=== PATIENT | female | born 2000 | race Caucasian/White ===

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

== ENCOUNTER → 2022-09-06 | Outpatient (REF) | payer OTHER, MEDICAID ==
[2022-09-06 21:22] LABS: APPEARANCE, URINE MANUAL HAZY (CLEAR); COLOR, URINE MANUAL YELLOW (YELLOW)
[2022-09-06 21:24] LABS: BILIRUBIN, URINE MANUAL NEGATIVE (NEGATIVE); BLOOD URINE MANUAL NEGATIVE (NEGATIVE); GLUCOSE, URINE (UA) MANUAL NEGATIVE (NEGATIVE); KETONE, URINE MANUAL NEGATIVE (NEGATIVE); LEUKOCYTE ESTERASE, URINE MAN TRACE (NEGATIVE); NITRITE, URINE MANUAL NEGATIVE (NEGATIVE); PH,URINE MAN 5.5 UNITS (5.0 - 7.0); PROTEIN, URINE MANUAL NEGATIVE (NEGATIVE); UROBILINOGEN, URINE MANUAL 1 MG mg/dl (NORMAL)
[2022-09-06 22:37] LABS: BACTERIA, URINE SMALL AMOUNT; HYALINE CAST, URINE NONE SEEN /lpf (0-1); MUCUS, URINE LARGE AMOUNT (NEGATIVE); RBC, URINE 0-1 /hpf (0-3); SQUAMOUS EPITHELIAL CELL URINE LARGE AMOUNT /hpf (SMALL AMT)
== END ==
LOC: M LAB REF 21:15
PROVIDERS: ATTEND Physician Assistant Medical
DX: N39.0 Urinary tract infection, site not specified (principal)

== ENCOUNTER → 2023-07-21 | Outpatient (REF) | payer OTHER, MEDICAID | LOC: M SFHCCLAY 13:55 | PROVIDERS: ATTEND Nurse Practitioner Family | DX: Z00.00 Encounter for general adult medical examination without abnormal findings (principal); E66.01 Morbid (severe) obesity due to excess calories; Z53.9 Procedure and treatment not carried out, unspecified reason ==

== ENCOUNTER → 2023-09-21 | Outpatient (REF) | payer OTHER, MEDICAID | LOC: M SMT 17:15 | PROVIDERS: ATTEND Urology | DX: N39.8 Other specified disorders of urinary system (principal) ==

== ENCOUNTER → 2023-10-28 | Outpatient (REF) | payer OTHER, MEDICAID ==
[2023-10-28 14:13] LABS: APPEARANCE, URINE CLEAR (CLEAR); BACTERIA, URINE AUTO NEGATIVE (NEGATIVE); BILIRUBIN, URINE AUTO NEGATIVE (NEGATIVE); BLOOD, URINE BLOOD 1+ (NEGATIVE); COLOR, URINE YELLOW (YELLOW); GLUCOSE, URINE (UA) AUTO NEGATIVE (NEGATIVE); KETONE, URINE AUTO NEGATIVE (NEGATIVE); LEUKOCYTE ESTERASE, URINE AUTO NEGATIVE (NEGATIVE); MUCUS, URINE SMALL (NEGATIVE); NITRITE, URINE AUTO NEGATIVE (NEGATIVE); PROTEIN, URINE AUTO NEGATIVE (NEGATIVE); RBC, URINE AUTO 31 /HPF (0-3); SPECIFIC GRAVITY URINE AUTO 1.015 (1.002-1.035); SQUAMOUS EPITHELIAL CELL UR AU 1 /HPF (0-6); UROBILINOGEN, URINE AUTO 0.2 mg/dL (0.0-2.0); WBC, URINE AUTO 1 /HPF (0-3)
== END ==
LOC: M SMT 12:44
PROVIDERS: ATTEND Urology
DX: N39.8 Other specified disorders of urinary system (principal)

== ENCOUNTER 2023-11-01 09:49 | Emergency (ER) | payer OTHER, MEDICAID ==
[~2023-11-01] VITALS: Ht 162.6 cm; Wt 203.0 kg
[2023-11-01 09:50] VITALS: BP 135/80; TEMP 99.3; O2SAT 95
[2023-11-01] MEDS ORDERED: BOOSTRIX VACCINE (TETANUS/DIPHTH/ACEL. PERTUSSIS) 0.5ML SYR IM.IMMUN ONE (12:35)
== END 2023-11-01 12:46 | disposition home or self-care (01) ==
LOC: M ED 09:49
DX: S50.11XA Contusion of right forearm, initial encounter (principal); W50.3XXA Accidental bite by another person, initial encounter; Y99.0 Civilian activity done for income or pay; Y92.9 Unspecified place or not applicable; Z79.3 Long term (current) use of hormonal contraceptives

== ENCOUNTER → 2024-01-20 | Outpatient (CLI) | payer OTHER, MEDICAID | LOC: M CLY 14:33 | PROVIDERS: ATTEND Nurse Practitioner Family | DX: R07.9 Chest pain, unspecified (principal) ==

== ENCOUNTER → 2024-01-20 | Outpatient (REF) | payer OTHER, MEDICAID ==
[2024-01-20 17:19] LABS: BASO # 0.1 10^3/uL (0.0-0.2); BASO % 0.8 % (0.0-1.0); EOS # 0.7 10^3/uL (0.0-0.5); EOS % 7.7 % (0.0-3.0); HEMATOCRIT 44.8 % (36.0-47.0); HEMOGLOBIN 14.5 g/dl (12.0-15.5); LYMPH # 2.2 10^3/uL (1.5-5.0); MEAN CORPUSCULAR HGB CONC 32.4 g/dl (32.0-36.5); MEAN CORPUSCULAR VOLUME 86.7 fl (80.0-96.0); MONO # 0.9 10^3/uL (0.0-0.8); MONO % 9.4 % (2.0-8.0); NEUTROPHILS # 5.6 10^3/uL (1.5-8.5); NEUTROPHILS % 58.7 % (36.0-66.0); PLATELET COUNT, AUTOMATED 334 10^3/uL (150-450); RED BLOOD COUNT 5.17 10^6/uL (4.00-5.40); WHITE BLOOD COUNT 9.5 10^3/uL (4.0-10.0)
[2024-01-20 18:08] LABS: ALBUMIN 3.4 G/DL (3.2-5.2); ALKALINE PHOSPHATASE 62 U/L (46-116); ALT/SGPT 22 U/L (7.0-40); AST/SGOT 12 U/L (<34); BILIRUBIN,TOTAL 0.4 MG/DL (0.3-1.2); BLOOD UREA NITROGEN 13 MG/DL (9-23); CALCIUM LEVEL 8.5 MG/DL (8.5-10.1); CARBON DIOXIDE LEVEL 25 MMOL/L (20-31); CHLORIDE LEVEL 108 MMOL/L (98-107); CHOLESTEROL LEVEL 143 MG/DL (<200); CHOLESTEROL RISK RATIO 2.86 (<5); CREATININE FOR GFR 0.61 MG/DL (0.55-1.30); FOLLICLE STIMULATING HORMONE 6.1 mIU/ML; GLOMERULAR FILTRATION RATE > 60.0 (>60); GLUCOSE, FASTING 88 MG/DL (60-100); LDL CHOLESTEROL 73.4 MG/DL (<100); LUTEINIZING HORMONE 7.6 mIU/ML; SODIUM LEVEL 139 MMOL/L (136-145); THYROID STIMULATING HORMONE 1.496 uIU/ML (0.55-4.78); TOTAL PROTEIN 6.9 G/DL (5.7-8.2); TRIGLYCERIDES LEVEL 98 MG/DL (<150)
[2024-01-20 18:09] LABS: TESTOSTERONE 57 NG/DL (14-76)
[2024-01-20 18:34] LABS: HEMOGLOBIN A1c 4.9 % (4.0-6.0)
[2024-01-22 08:08] LABS: FREE ANDROGEN INDEX 7.9 (0.4-8.4); SEX HORM BINDING GLOB 29.6 nmol/L (24.6-122.0); TESTOSTERONE 67 ng/dL (13-71)
== END ==
LOC: M SFHCCLAY 13:55
PROVIDERS: ATTEND Nurse Practitioner Family
DX: R07.9 Chest pain, unspecified (principal); E66.01 Morbid (severe) obesity due to excess calories; L68.0 Hirsutism; N91.2 Amenorrhea, unspecified

== ENCOUNTER → 2024-02-23 | Outpatient (REF) | payer OTHER, MEDICAID | LOC: M SFHCCLAY 11:50 | PROVIDERS: ATTEND Nurse Practitioner Family | DX: R07.9 Chest pain, unspecified (principal) ==

== ENCOUNTER → 2024-03-14 | Outpatient (CLI) | payer OTHER, MEDICAID | LOC: M CARPUL 15:23 | PROVIDERS: ATTEND Nurse Practitioner Family | DX: R07.9 Chest pain, unspecified (principal); R94.31 Abnormal electrocardiogram [ECG] [EKG] ==

== ENCOUNTER → 2024-04-13 | Outpatient (CLI) | payer OTHER, MEDICAID | LOC: M WHC 15:34 | PROVIDERS: ATTEND Nurse Practitioner Family | DX: N91.2 Amenorrhea, unspecified (principal) ==

== ENCOUNTER → 2024-09-17 | Outpatient (CLI) | payer OTHER ==
[2024-09-17 19:31] LABS: HEPATITIS B SURFACE ANTIGEN NEGATIVE (NEGATIVE)
[2024-09-17 19:33] LABS: HEMOGLOBIN A1c 4.8 % (4.0-6.0)
[2024-09-17 19:43] LABS: HIV 1&2 SCREEN NEGATIVE (NEGATIVE)
[2024-09-17 19:51] LABS: HEPATITIS B CORE ANTIBODY IGM NEGATIVE (NEGATIVE); HEPATITIS C VIRUS ABY INDEX 0.02 INDEX (<0.8)
[2024-09-17 20:04] LABS: Trichomonas vaginalis (AMP) NOT DETECTED (NEGATIVE)
[2024-09-17 20:27] LABS: GC DNA AMPLIFICATION NEGATIVE (NEGATIVE)
== END ==
LOC: M PLALAB 15:05
PROVIDERS: ATTEND Nurse Practitioner Family
DX: E28.2 Polycystic ovarian syndrome (principal); Z11.3 Encounter for screening for infections with a predominantly sexual mode of transmission

== ENCOUNTER → 2024-12-04 | Outpatient (REF) | payer OTHER | LOC: M SFHCWAGY 17:26 | PROVIDERS: ATTEND Nurse Practitioner Family | DX: Z12.4 Encounter for screening for malignant neoplasm of cervix (principal) ==

== ENCOUNTER 2025-02-20 08:07 | Emergency (ER) | payer OTHER ==
[~2025-02-20] VITALS: Ht 162.6 cm; Wt 195.9 kg
[2025-02-20] MEDS ORDERED: LORA-1041 (08:23)
[2025-02-20] MEDS: IBUPROFEN 600MG TAB PO ONE (09:26)
[2025-02-20] MEDS ORDERED: IBUP-1022 PO (10:11)
[2025-02-20] MEDS ORDERED: ACET-907 PO (10:11)
[2025-02-20 10:33] VITALS: BP 115/73; TEMP 97.2; O2SAT 98
== END 2025-02-20 10:35 | disposition home or self-care (01) ==
LOC: M ED 08:07
DX: S66.412A Strain of intrinsic muscle, fascia and tendon of left thumb at wrist and hand level, initial encounter (principal); X58.XXXA Exposure to other specified factors, initial encounter; Y92.9 Unspecified place or not applicable; Y93.9 Activity, unspecified; Y99.0 Civilian activity done for income or pay

== ENCOUNTER → 2025-10-18 | Outpatient (CLI) | payer OTHER ==
[~2025-10-18] MED LIST changes: +ACET-907 PO; +IBUP600T42 PO; +LORA-1041
[2025-10-18 18:51] LABS: ALT/SGPT 28 U/L (7.0-40); AST/SGOT 20 U/L (<34); CALCIUM LEVEL 8.8 MG/DL (8.5-10.1); CARBON DIOXIDE LEVEL 24 MMOL/L (20-31); CHLORIDE LEVEL 107 MMOL/L (98-107); CHOLESTEROL LEVEL 136 MG/DL (<200); CHOLESTEROL RISK RATIO 2.47 (<5); CREATININE FOR GFR 0.59 MG/DL (0.55-1.30); GLOMERULAR FILTRATION RATE > 90.0 (>60); LDL CHOLESTEROL 66.7 MG/DL (<100); NON-HDL-C 81.1 MG/DL; POTASSIUM SERUM 4.0 MMOL/L (3.5-5.1); SODIUM LEVEL 142 MMOL/L (136-145); TRIGLYCERIDES LEVEL 72 MG/DL (<150)
[2025-10-18 18:52] LABS: FREE T4 1.37 NG/DL (0.89-1.76)
[2025-10-18 18:58] LABS: ESTIMATED AVERAGE GLUCOSE 94.0 MG/DL (60-110)
[2025-10-18 19:05] LABS: BASO # 0.1 10^3/uL (0.0-0.2); BASO % 1.0 % (0.0-1.0); EOS # 0.5 10^3/uL (0.0-0.5); EOS % 5.5 % (0.0-3.0); LYMPH # 2.3 10^3/uL (1.5-5.0); LYMPH % 25.5 % (24.0-44.0); MONO # 0.8 10^3/uL (0.0-0.8); MONO % 8.9 % (2.0-8.0); NEUTROPHILS # 5.3 10^3/uL (1.5-8.5); NEUTROPHILS % 58.4 % (36.0-66.0); PLATELET COUNT, AUTOMATED 294 10^3/uL (150-450)
== END ==
LOC: M WUC 14:22
PROVIDERS: ATTEND Nurse Practitioner Family
DX: E28.2 Polycystic ovarian syndrome (principal); J30.9 Allergic rhinitis, unspecified; R00.0 Tachycardia, unspecified; R45.0 Nervousness; Z68.45 Body mass index [BMI] 70 or greater, adult